=== PATIENT | female | born 1945 ===

== ENCOUNTER 2017-06-19 00:59 | Emergency (ER) | payer MEDICARE, OTHER ==
[2017-06-19 01:01] VITALS: BMI 26.5
[2017-06-19 01:12] VITALS: RESP 20
[2017-06-19] MEDS ORDERED: Sodium Chloride 0.9% 1,000 ML IV ONE (01:13)
[2017-06-19] MEDS ORDERED: (Novolin R) Insulin Human Regular 100 units/ml vial SC ONE (01:14)
[2017-06-19] MEDS ORDERED: Sodium Chloride 0.9% 500 ML IV ONE ×2 (01:14→01:33)
[2017-06-19 01:29] LABS: BASO # 0.1 K/uL (0.0-0.2); BASO % 0.9 % (0.0-2.0); EOS # 0.2 K/uL (0.0-0.7); HEMOGLOBIN 12.3 g/dL (11.0-16.0); LYMPH # 2.2 K/uL (1.0-4.3); LYMPH % 26.4 % (20.0-40.0); MEAN CELL VOLUME 91.6 fL (81.0-99.0); MEAN CORPUSCULAR HEMOGLOBIN 30.6 pg (27.0-31.0); MEAN CORPUSCULAR HGB CONC 33.4 g/dL (33.0-37.0); MEAN PLATELET VOLUME 9.5 fL (7.2-11.7); MONO # 0.7 K/uL (0.0-0.8); MONO % 8.4 % (0.0-10.0); NEUT # 5.2 K/uL (1.8-7.0); NEUT % 62.3 % (50.0-75.0); RBC 4.03 Mil/uL (3.80-5.20); RED CELL DISTRIBUTION WIDTH 12.9 % (11.5-14.5); WHITE BLOOD COUNT 8.4 K/uL (4.8-10.8)
--- NOTE | 2017-06-19 01:30 | C.PDOC ---
History Of Present Illness 71 year old female who presents to the ER with a complaint of high blood sugar. Patient states she tested herself at home and was found to have her blood sugar level +300. Denies nausea, vomiting, or pain; currently asymptomatic. Chief Complaint (Nursing): High Blood Sugar History Per: Patient History/Exam Limitations: no limitations Onset/Duration Of Symptoms: Hrs Current Symptoms Are (Timing): Still Present Associated Infectious Symptoms: denies: Dysuria, Urinary Frequency, Nausea, Vomiting Recent travel outside of the [place]: No Past Medical History Reviewed: Historical Data, Nursing Documentation, Vital Signs Vital Signs: Last Vital Signs Temp 97.9 F 06/19/17 01:06 Pulse 82 06/19/17 01:06 Resp 20 06/19/17 01:06 BP 132/72 06/19/17 01:06 Pulse Ox 95 06/19/17 01:32 - Medical History PMH: Asthma, Colonic Polyps, Depression, Diabetes, HTN Surgical History: Endoscopy - [facility] Procedures INSERTION OF INFUSION DEV INTO SUP VENA CAVA, PERC APPROACH (07/27/16) RESECTION OF RIGHT LARGE INTESTINE, OPEN APPROACH (07/27/16) Family History: States: Unknown Family Hx - Social History Hx Tobacco Use: No Hx Alcohol Use: No Hx Substance Use: No - Immunization History Hx Tetanus Toxoid Vaccination: No Hx Influenza Vaccination: No Hx Pneumococcal Vaccination: No Review Of Systems Constitutional: Negative for: Fever, Chills Gastrointestinal: Negative for: Nausea, Vomiting, Abdominal Pain, Diarrhea Physical Exam - Physical Exam Appears: Non-toxic, No Acute Distress Skin: Normal Color, Warm, Dry Head: Atraumatic, Normacephalic Oral Mucosa: Moist Chest: Symmetrical, No Tenderness Cardiovascular: Rhythm Regular, No Murmur Respiratory: Normal Breath Sounds, No Rales, No Rhonchi, No Wheezing Gastrointestinal/Abdominal: Soft, No Tenderness Neurological/Psych: Oriented x3, Normal Speech, Normal Cognition ED Course And Treatment - Laboratory Results Result Diagrams: 06/19/17 01:26 06/19/17 01:26 O2 Sat by Pulse Oximetry: 95 (Room air) Pulse Ox Interpretation: Normal Progress Note: Blood work ordered. Insulin and IV fluids administered. Disposition Counseled Patient/Family Regarding: Diagnosis - Disposition Referrals: [facility] [Outside] Disposition: HOME/ ROUTINE Disposition Time: 04:39 Condition: STABLE Instructions: Diabetes Mellitus Type 2 in Adults (ED) Forms: Gen Discharge Inst [place] Print Language: AMHARIC - Clinical Impression Clinical Impression: Hyperglycemia, Diabetes mellitus - Scribe Statement The provider has reviewed the documentation as recorded by the Scribtrent Patrick All medical record entries made by the Kiranibe were at my direction and personally dictated by me. I have reviewed the chart and agree that the record accurately reflects my personal performance of the history, physical exam, medical decision making, and the department course for this patient. I have also personally directed, reviewed, and agree with the discharge instructions and disposition.
[2017-06-19] MEDS ORDERED: Sodium Chloride 0.9% 1,000 ML ONE (01:33)
[2017-06-19] MEDS ORDERED: (Novolin R) Insulin Human Regular 100 units/ml vial ONE (01:33)
[2017-06-19 01:43] LABS: ALBUMIN 3.9 g/dL (3.5-5.0)
[2017-06-19 01:45] LABS: GFR AFRICAN-AMERICAN > 60; GFR NON-AFRICAN AMERICAN > 60
[2017-06-19 01:46] LABS: ALB/GLOB RATIO 1.3 (1.0-2.1); ALT/SGPT 23 U/L (9-52); AST/SGOT 22 U/L (14-36); BLOOD UREA NITROGEN 21 mg/dL (7-17)
[2017-06-19 01:47] LABS: CALCIUM 8.8 mg/dl (8.6-10.4)
[2017-06-19 04:47] VITALS: BP 120/65; PULSE 79; TEMP 97.7; O2SAT 97
== END 2017-06-19 04:50 | disposition home or self-care (01) ==
LOC: C.ER 00:59
DX: E11.65 Type 2 diabetes mellitus with hyperglycemia (principal)
CPT/HCPCS: 80053; 82009; 82948; 85025; 99285; J7040

== ENCOUNTER 2017-08-13 07:34 | Day surgery (SDC) | payer MEDICARE, OTHER ==
[2017-08-13 08:18] VITALS: TEMP 97
--- NOTE | 2017-08-13 09:27 | CP.SDSHP ---
Same Day Surgery H & P - History Proposed Procedure: colonoscopy - Previous Medical/Surgical History Cardiac: Hypertension Endocrine/Metabolic: Diabetes - Allergies Allergies: Allergies aspirin Allergy (Verified 06/19/17 01:12) RASH cortisone Allergy (Verified 06/19/17 01:12) SWELLING ibuprofen [From Motrin] Allergy (Verified 06/19/17 01:12) RASH morphine Allergy (Verified 06/19/17 01:12) RASH nervous NSAIDS (Non-Steroidal Anti-Inflamma Allergy (Verified 06/19/17 01:12) RASH - Physical Exam Vital Signs: Vital Signs 08/13/17 08:11 Temperature 97 F L Pulse Rate 74 Respiratory 18 Rate Blood Pressure 141/52 L O2 Sat by Pulse 98 Oximetry - Date & Time Date: 08/13/17 Time: 09:27 Short Stay Discharge - Short Stay Discharge Admitting Diagnosis/Reason for Visit: PERSONAL HISTORY OF MALIGNANT NEOPLASM OF LARGE IN Disposition: HOME/ ROUTINE
[2017-08-13] MEDS ORDERED: Propofol 10 mg/ml Inj (20 ML) ONE (09:29)
[2017-08-13 09:35] VITALS: O2SAT 100
[2017-08-13] MEDS ORDERED: Lactated Ringer's 500 ML IV ONE ×2 (09:37)
[2017-08-13 11:08] VITALS: BP 148/72; PULSE 62; RESP 18
== END 2017-08-13 14:30 | disposition home or self-care (01) ==
LOC: C.ENDO 07:34
PROVIDERS: ATTEND Colon & Rectal Surgery
DX: Z12.11 Encounter for screening for malignant neoplasm of colon (principal); Z85.038 Personal history of other malignant neoplasm of large intestine
CPT/HCPCS: 45378; 82948; J2704; J7120

== ENCOUNTER 2018-01-14 07:35 | Day surgery (SDC) | payer MEDICARE, OTHER ==
[2018-01-14] MEDS ORDERED: Propofol 10 mg/ml Inj (20 ML) ONE (09:47)
[2018-01-14] MEDS ORDERED: Midazolam 2 MG/2 ML VIAL ONE (09:47)
--- NOTE | 2018-01-14 09:47 | CP.SDSHP ---
Same Day Surgery H & P - Previous Medical/Surgical History Cardiac: Hypertension Endocrine/Metabolic: Diabetes Previous Surgical History: rt colectomy - Allergies Allergies: Allergies aspirin Allergy (Verified 06/19/17 01:12) RASH cortisone Allergy (Verified 06/19/17 01:12) SWELLING ibuprofen [From Motrin] Allergy (Verified 06/19/17 01:12) RASH morphine Allergy (Verified 06/19/17 01:12) RASH nervous NSAIDS (Non-Steroidal Anti-Inflamma Allergy (Verified 06/19/17 01:12) RASH - Physical Exam Vital Signs: Vital Signs 01/14/18 07:58 Temperature 97.3 F L Pulse Rate 80 Respiratory 20 Rate Blood Pressure 150/54 L O2 Sat by Pulse 97 Oximetry - Date & Time Date: 01/14/18 Time: 09:47 Short Stay Discharge - Short Stay Discharge Admitting Diagnosis/Reason for Visit: HISTORY OF COLON CARCINOMA Disposition: HOME/ ROUTINE
[2018-01-14 10:03] VITALS: O2SAT 100
[2018-01-14 10:30] VITALS: RESP 18; TEMP 98.8
[2018-01-14 11:13] VITALS: BP 141/67; PULSE 77
== END 2018-01-14 11:25 | disposition home or self-care (01) ==
LOC: C.ENDO 07:35
PROVIDERS: ATTEND Colon & Rectal Surgery
DX: Z12.11 Encounter for screening for malignant neoplasm of colon (principal); Z85.038 Personal history of other malignant neoplasm of large intestine; K64.8 Other hemorrhoids; Z98.0 Intestinal bypass and anastomosis status; I10 Essential (primary) hypertension; E11.9 Type 2 diabetes mellitus without complications; Z79.84 Long term (current) use of oral hypoglycemic drugs
CPT/HCPCS: 82948; G0105; J2001; J2250; J2704